=== PATIENT | female | born 1970 | race Caucasian/White ===

== ENCOUNTER 2020-05-05 09:48 | Outpatient (REF) | payer MEDICAID, SELFPAY ==
[2020-05-05 22:01] LABS: HCT 39.4 % (36.0-46.0); HGB 13.1 g/dL (12.0-15.5); Mean Corp. HGB Concentration 33.2 g/dL (32.0-36.0); Mean Corpuscular Hemoglobin 30.1 pg (27.0-33.0); Mean Corpuscular Volume 90.6 fL (80-95); Mean Platelet Volume 10.2 fL (8.0-11.0); Platelet Count 237 x1000/uL (130-400); RBC 4.35 m/cumm (4.00-5.20); RBC Distribution Width 13.5 % (11.7-14.6); White Blood Cell Count 7.52 k/cumm (4.4-10.8)
[2020-05-05 22:34] LABS: ALT 17 U/L (14-59); AST 14 U/L (15-37); Albumin 3.6 g/dL (3.4-5.0); Alkaline Phosphatase 38 U/L (46-116); Anion Gap 10.2 mmol/L (3-11); BUN 12 mg/dL (7-18); Bilirubin, Total 1.2 mg/dL (0.2-1.0); CO2 24.8 mmol/L (21.0-32.0); CREATININE 0.86 mg/dL (0.55-1.02); Calcium 8.9 mg/dL (8.5-10.1); Calculated LDL 109 mg/dL (<100); Chloride 104 mmol/L (98-107); Cholesterol 189 mg/dL (<200); Glucose 93 mg/dL (74-106); HDL Cholesterol 63 mg/dL (40-60); Potassium 4.2 mmol/L (3.5-5.1); Sodium 139 mmol/L (136-145); Total Protein 6.6 g/dL (6.4-8.2); Triglyceride 88 mg/dL (<150)
== END 2020-05-05 10:08 ==
LOC: NCHCN 09:48
PROVIDERS: PCP Family Medicine; Visit Provider Family Medicine
DX: F32.9 Major depressive disorder, single episode, unspecified (principal); M54.5 Low back pain; Z78.0 Asymptomatic menopausal state
CPT/HCPCS: 80053; 80061; 85027

== ENCOUNTER 2020-05-28 11:02 | Outpatient (REF) | payer MEDICAID, SELFPAY ==
--- NOTE | 2020-05-28 10:30 | PAPFT_PTH ---
PATIENT: Aime Abraham LOC: [facility] U#:[id number] AGE/SX: 50/F ROOM: RE05/28/[address]: SD Pope : 1970 BED: DIS: 05/28/2020 SPEC #: [id number] RECD: 05/28/20 12:44 STATUS: SUMEET REMayela #: [id number] SADIE: 05/28/20 10:[address]: Madison Saleh DEPT: [facility] Cytology RECD BY: Keli Austin ENTERED: 05/28/20 12:44 SP TYPE: PAPFT OTHR DR: Yany Gee Tissues: 1 - CX/ENDOCX FOR PAP SMEARS Procedures: PAP THIN PREP/UVM Screening HPV DNA PROBE Comments: [id number]
== END 2020-05-28 11:22 ==
LOC: LBN 11:02
PROVIDERS: PCP Family Medicine; Visit Provider Nurse Practitioner Family
DX: Z11.51 Encounter for screening for human papillomavirus (HPV) (principal)
CPT/HCPCS: 88142; 87624

== ENCOUNTER 2020-06-01 01:03 | Outpatient (CLI) | payer MEDICAID, SELFPAY ==
--- NOTE | 2020-06-01 08:00 | DI.MAMMO_ITS ---
EXAM: MG MAMMO SCREENING CLINICAL HISTORY: screening,Z12.39 TECHNIQUE: Mammograms were interpreted according to the usual protocol including computer analysis w [employer] CAD system, tomosynthesis and C-view imaging. COMPARISON: FINDINGS: Breasts are heterogeneously dense. No focal mass or clumped microcalcification is seen. No prior st udies available for comparison. IMPRESSION: No specific evidence of malignancy at this time. Routine screening examinations are suggested at yea rly intervals due to the family history of breast carcinoma. BI-RADS Cat 1 - Negative: Breast Density - Category C - Heterogeneously dense:
== END 2020-06-01 01:23 ==
PROVIDERS: PCP Family Medicine; Visit Provider Nurse Practitioner Family
DX: Z12.31 Encounter for screening mammogram for malignant neoplasm of breast (principal); Z80.3 Family history of malignant neoplasm of breast; R92.2 Inconclusive mammogram
CPT/HCPCS: 77063; 77067

== ENCOUNTER 2020-12-20 14:15 | Outpatient (REF) | payer MEDICAID, SELFPAY ==
[2020-12-21 19:39] LABS: COVID-19 RT-PCR UVMMC Result Negative (Negative)
== END 2020-12-20 14:16 | disposition home or self-care (01) ==
LOC: NCHCN 14:15
PROVIDERS: PCP Family Medicine; Visit Provider Family Medicine
DX: Z20.822 Contact with and (suspected) exposure to COVID-19 (principal)
CPT/HCPCS: U0003

== ENCOUNTER 2021-07-21 01:22 | Outpatient (CLI) | payer MEDICAID, SELFPAY ==
--- NOTE | 2021-07-21 15:00 | DI.MAMMO_ITS ---
Exam(s) MAMMO SCREENING EXAM: MAMMO SCREENING CLINICAL HISTORY: screening TECHNIQUE: Bilateral full field digital CC and MLO mammographic images were obtained with 3D tomosyn thesis and utilizing computer aided detection (CAD). COMPARISON: Available for comparison. FINDINGS: Masses/Architectural Distortion: None seen. Microcalcifications: No suspicious pleomorphic-type are seen. Skin Thickening/Nipple Retraction: None. IMPRESSION: 1. No significant interval change with no specific features of malignancy noted. 2. Unless there is more urgent need, screening mammography is recommended, as per [employer] guidelines. BI-RADS Category 1 - Negative Breast Density - Category B - Scattered areas of fibroglandular density Breast density category C or D implies that the patient has dense breast tissue. Dense breast tissue is very common and is not abnormal but dense breast tissue can make it harder to find cancer on a ma mmogram. Also, dense breast tissue may increase their breast cancer risk. This information about the result of the mammogram report was provided to the patient to raise their awareness. Use this report when you speak with the patient about their risks for breast cancer, which includes their family hist ory. At that time, you may recommend for more screening tests (Ultrasound or MRI) as they might be us eful based on their risk. A negative radiographic report should not delay biopsy if a dominant or clinically suspicious mass is present. Up to ten percent of cancers are not identified on mammography. A negative report may reinforce clinical impression. Adenosis and dense breasts may obscure an underlying neoplasm. False positive reports average 6 to 10%. Patient will receive a letter notifying them of these results.
== END 2021-07-21 01:42 ==
PROVIDERS: PCP Family Medicine; Visit Provider Nurse Practitioner Family
DX: Z12.31 Encounter for screening mammogram for malignant neoplasm of breast (principal)
CPT/HCPCS: 77063; 77067

== ENCOUNTER 2022-02-01 02:54 | Outpatient (CLI) | payer MEDICAID, SELFPAY ==
[2022-02-01 10:10] LABS: Source Nasal/Nares
[2022-02-01 12:56] LABS: COVID-19 PCR Negative (Negative)
== END 2022-02-01 02:55 | disposition home or self-care (01) ==
LOC: LBO 02:54
PROVIDERS: PCP Family Medicine; Visit Provider Surgery
DX: Z20.822 Contact with and (suspected) exposure to COVID-19 (principal)
CPT/HCPCS: 87635

== ENCOUNTER 2022-02-03 08:51 | Day surgery (SDC) | payer MEDICAID, SELFPAY ==
--- NOTE | 2022-02-02 15:09 | W.COLOREPORT ---
Colonoscopy Report Date of procedure: 02/03/22 Pre-op diagnosis general: crc screening Post-op diagnosis procedure note: other (Small polyp and diverticula) Surgeon: Luzma Willis Anesthesia Type: General:No Airway Estimated blood loss (mL): 1 Pathology: other Complications: None Disposition: same day Prep: Miralax/Dulcolax Retraction Time: 10 Procedure Description: After informed consent was obtained the patient was taken to the procedure room and placed in a left decubitous position. Monitors were applied and a time out was done. The patients name, date of , procedure, allergies to medications and metal in their body was reviewed. The patient was then sedated. Once sedated and comfortable a rectal exam was done. External exam was normal. Internal exam revealed a normal sphincter tone and no palpable masses. The scope was then introduced and retrofelexed. internal hemorrhoids were identified. The scope was then advanced to the cecum withoutdifficulty. The TI and appendiceal orifice were identified. The prep was BBPS-3 in all segments for a total of 9. The scope clinic ts then slowly retracted over 10 minutes back into the rectum. She had a small polyp at 30 cm. It did appear to be an inflammatory polyp. It was a flat 5 mm polyp that was removed with 2 bites of cold forcep. All specimen is retrieved and no bleeding is noted. She does have moderate diverticula scattered throughout the sigmoid colon. There is no signs of any active bleeding or infection. The scope was removed and the patient was woken up and taken back to Same day surgery in stable condition. The patient tolerated the procedure well and there were no immediate complications. Follow up: The patient should follow up in 7-10 years, path pd, unless they develop changes in bowel habits or other new gastrointestinal complaints.
--- NOTE | 2022-02-02 15:10 | PDOC.DSDIS_ITS ---
Discharge Plan Disposition Patient Disposition: HOME Condition: Good Discharge Details Reason For Visit: colon scope Attending Provider: Luzma Willis Primary Care Provider: Yany Gee Home Meds and New Rx's Prescriptions: Continued omega-3 fatty acids [Fish Oil Concentrate] 1,000 mg capsule 1,000 mg PO DAILY 0RF sertraline 50 mg tablet 50 mg PO HS 0RF cholecalciferol (vitamin D3) 125 mcg (5,000 unit) capsule 125 mcg PO DAILY 0RF Lion's Vini 1 cap PO DAILY 0RF Label Comments: Takes for prevention of dementia Curcumin 95 % powder See Rx Instructions miscellaneous .COMPLEX 0RF Rx Instructions: 1 cap PO daily ascorbic acid (vitamin C) 500 mg capsule 500 mg PO DAILY 0RF baclofen 10 mg tablet 10 mg PO DAILY 0RF propranolol 10 mg tablet 10 mg PO DAILY PRN0RF Probiotic (B. coagulans) 10 billion cell capsule,delayed release(DR/EC) 10 cell PO DAILY 0RF progesterone micronized 100 mg capsule 100 mg PO QAM Qty: 90 3RF Discontinued bisacodyl [Dulcolax (bisacodyl)] 5 mg tablet,delayed release (DR/EC) 5 mg PO ONCE Qty: 4 0RF Rx Instructions: Take according to provider's instructions for colonoscopy prep. polyethylene glycol 3350 17 gram/dose powder 17 g PO ONCE Qty: 238 0RF Rx Instructions: To be taken as directed by prescriber's office for colonoscopy prep. Discharge Instructions Additional Instructions: DSU Colonoscopy Post- Op Instructions Instructions for Everyone who is given Anesthesia: For your safety, please do the following for the next twenty-four (24) hours: *Do Not operate a motor vehicle (car, truck, motorcycle, etc.) *Do Not drink alcoholic beverages or use any recreational drugs for the first 24 hours or while taking pain medications. The medications in your body may have a reaction that can be dangerous. *Do Not make any important decisions or sign any important papers. Findings: -One small polyp. -Moderate diverticular disease. Make sure you are moving your bowels on a regular basis and avoid straining to go to the bathroom. Follow up: -My office will send you a letter in 2 to 3 weeks time, detailing as to what type of polyp it was and when we want you to repeat your colonoscopy is being. 1. No lifting over 20 pounds or strenuous activity for the first 24 hours after your procedure. After 24 hours there are no restrictions on your activity but you may feel fatigued for a few days. 2. After you arrive home you may have a light meal and return to your normal diet as you can tolerate it without feeling sick to your stomach. 3. You may have a bloated, gaseous feeling in your belly (abdomen) after a colonoscopy. Passing gas and belching will help. Walking or lying down on your left side with your knees flexed may relieve the discomfort. Call the office at [phone] (Office) or [phone] (Hospital) right away if you notice any of the following: a.Vomiting of blood or ?coffee ground stools?. b.Rectal bleeding 1Tbsp, blood clots or continuous bleeding. c.Severe belly (abdominal) pain. d.A hard distended belly (abdomen) and an inability to pass gas. 4. Please don?t expect to have a normal BM (bowel movement) for 2-3 days after your procedure. 5. If there are questions regarding the findings of your procedure, please contact your doctor 6. If you are unable to contact your doctor with a problem, contact the hospital at [phone]. 7. Continue all your regular medications unless directed otherwise. I understand the above instructions and have no questions. Signature of Patient or Adult Escort Name of Responsible Adult Escort Signature of Nurse Date/Time Activity:: seeabove Diet:: see above Discharge Orders Discharge Orders: Discharge Order (Routine); Ordered 02/02/22 Ordered By: Luzma Willis
[2022-02-03 09:18] VITALS: BP 104/79; PULSE 70; RESP 16; TEMP 36.7; O2SAT 94
--- NOTE | 2022-02-03 09:31 | W.ANESPRE ---
General Info Date of Service Date Performed: 02/03/22 Height: 5 ft 8 in Weight: 74.6 kg Body Mass Index (BMI): 25.0 Surgical Procedure: Operation Date: 02/03/22 09:50 Proposed Procedure Side Surgeon kody Willis, DO Meds Allergies and Home Medications Allergies Allergy/AdvReac Type Severity Reaction Status Date / Time No Known Allergies Allergy Verified 02/03/22 09:04 Home Medication Medication Instructions Recorded Renetta Martini 1 cap PO DAILY 05/28/20 cholecalciferol (vitamin D3) 125 125 mcg PO DAILY 05/28/20 mcg (5,000 unit) capsule omega-3 fatty acids 1,000 mg 1,000 mg PO DAILY 05/28/20 capsule (Fish Oil Concentrate) sertraline 50 mg tablet 50 mg PO HS 05/28/20 turmeric (bulk) 95 % powder See Rx Instructions MISCELLANEOUS 05/28/20 (Curcumin) .COMPLEX gm Bacillus coagulans 10 billion cell 10 cell PO DAILY 07/08/21 capsule,delayed release (Probiotic (B. coagulans)) baclofen 10 mg tablet 10 mg PO DAILY 07/08/21 propranolol 10 mg tablet 10 mg PO DAILY PRN tab 07/08/21 progesterone micronized 100 mg 100 mg PO QAM #90 cap 09/02/21 capsule ascorbic acid (vitamin C) 500 mg 500 mg PO DAILY 01/20/22 capsule Current Visit Medications: Current Medications Generic Name Dose Route Start Last Admin Trade Name Freq PRN Reason Stop Dose Admin Hyoscyamine Sulfate 0.125 mg 02/02/22 14:53 Hyoscyamine 0.125 Mg Sl/Oral/Chew SL 02/03/22 16:00 DIRECTED PRN Ringer's Solution 1,000 mls @ 80 mls/hr 02/03/22 06:00 IV 03/04/22 23:59 INFUSION ADIA IV Miscellaneous Supplies 1 each 02/03/22 06:00 Iv Access IV 03/04/22 23:59 DIRECTED ADIA Ondansetron HCl 4 mg 02/02/22 14:53 Ondansetron 4 Mg/2 Ml Vial IVP 02/03/22 16:00 Q4H PRN PRN Nausea / Vomiting Sodium Chloride 0 ml 02/03/22 06:00 Normal Saline Flush 10 Ml Syr IV 03/04/22 23:59 PRN PRN Sodium Chloride 0 ml 02/03/22 06:00 Normal Saline 10 Ml Vial IJ 03/04/22 23:59 DIRECTED PRN Sterile Water 0 ml 02/03/22 06:00 Water,Injection,Sterile 10 Ml Vial IJ 03/04/22 23:59 DIRECTED PRN PFSH Active Problems Active Problems: Problem Status Onset Code Screening for colon cancer Z12.11 Depression F32.9 Perimenopausal N95.1 Hormone replacement therapy (HRT) Z79.890 Medical History Medical History Low back pain Menopause Surgical History Surgical History S/P Tobacco Smoking/Tobacco Use Status: Never Alcohol Alcohol Intake: current Alcohol intake frequency: holidays/special occasions only Substance Use Substance use: Never Substance use type: does not use Vital Signs and Lab Results Vital Signs Most Recent Vital Signs in EMR: Most Recent Vital Signs Temp Pulse Resp BP Pulse Ox 36.7 C 70 16 104/79 94 02/03/22 09:18 02/03/22 09:18 02/03/22 09:18 02/03/22 09:18 02/03/22 09:18 Lab Results Blood Type / Crossmatch: No Data to Display Complete Blood Count: No Data to Display Complete Metabolic Panel: No Data to Display Liver Function Panel: No Data to Display Coagulation Panel: No Data to Display Cardiac Panel: No Data to Display Arterial Blood Gas: No Data to Display Venous Blood Gas: No Data to Display Pancreas Panel: No Data to Display Thyroid Panel: No Data to Display Infectious Disease: Coronavirus (COVID-19)(PCR) Negative (Negative) 02/01/22 08:55 02/01/22 Coronavirus 2019 Source Nasal/Nares 02/01/22 08:55 02/01/22 Blood Cultures: No Data to Display Toxicology Panel: No Data to Display Panel: No Data to Display Anesthesia Assessment and Plan Anesthesia History Personal History: No History of Anesthesia Complications Family History: No Family History of Anesthesia Complications Exercise Tolerance Exercise Tolerance: Metabolic Equivalents>4 Pertinent Negatives Pertinent Negatives: No Symptoms of GERD, No Major Cardiovascular Symptoms or Complaints, No Major Pulmonary Symptoms or Complaints and No History of CVA/TIA Cardiac & Pulmonary Exam Cardiac Exam: Normal S1/S2 Heart Sounds Pulmonary Exam: Clear Bilateral Breath Sounds Implantable Cardiac Device Does patient have a Pacemaker or an ICD?: No Airway Exam Known Difficult Airway: No Mallampati Class: 1 Mouth Opening: Normal (> 3cm) Thyromental Distance: Greater than 3 cm Neck Range of Motion: Full ROM Neck Circumference: Normal Teeth Condition: Normal Dentition ASA Classification ASA Score: ASA 2 Emergency Case?: No NPO Status NPO Status: NPO Clears >2 hours, Solids >8 hours Status Status: Not Relevant due to Medical History Anesthesia Plan Resuscitation Status: Full Code Anesthesia Technique: General Anesthesia Airway Planned: Natural Airway Monitors Used: Standard Monitors
[2022-02-03 09:33] VITALS: BMI 25.0
[2022-02-03] MEDS: Lactated Ringers 1,000 ML 80 ML IV (09:34)
--- NOTE | 2022-02-03 09:49 | BOWEL_PTH ---
PATIENT: Aime Abraham LOC: [facility] U#:[id number] AGE/SX: 51/F ROOM: RE02/03/[address]: Luzma Willis : 1970 BED: DIS: 02/03/2022 SPEC #: [id number] RECD: 02/03/22 12:30 STATUS: SUMEET REQ #: [id number] SADIE: 02/03/22 09:[address]: Luzma Willis DEPT: Surgical Specimen RECD BY: Keli Austin ENTERED: 02/03/22 12:30 SP TYPE: Bowel OTHR DR: Yany Gee Tissues: 1 - BIOPSY BOWEL Procedures: GROSS AND MICRO LEVEL 4 Comments: [id number]
--- NOTE | 2022-02-03 10:18 | W.ANESPOSTOP ---
Postoperative Evaluation Date, Time and Location Date Performed: 02/03/22 Time Performed: 10:18 Patient Location: Day Surgery Unit Vital Signs Most Recent Imported Vital Signs: Most Recent Vital Signs Temp Pulse Resp BP Pulse Ox 36.7 C 70 16 104/79 94 02/03/22 09:18 02/03/22 09:18 02/03/22 09:18 02/03/22 09:18 02/03/22 09:18 Most Recent Manually Entered Vital Signs: Adult Blood Pressure: 115/71 Heart Rate: 65 Respirations: 10 Oxygen Saturation (%): 96 Temperature (C): 36.4 C Pain Score (0-10 Scale): 0 Pain Score Most Recent Pain Score: Most Recent Pain Score Pain Level 0 02/03/22 09:18 Assessment Mental Status: Awake (Alert & Oriented to Patient Baseline) Airway and Respiratory Function: Patent airway with normal (patient baseline) respiratory exam Cardiovascular Function: Hemodynamically Stable Hydration Status: Adequately Hydrated Nausea & Vomiting: No Nausea or Vomiting Pain: Pt. Denies Any Pain Peripheral Nerve Block: Patient did not receive a nerve block
[2022-02-03 10:19] VITALS: BP 115/71; PULSE 65; PULSE 69; RESP 10; RESP 16; TEMP 36.4; TEMPC 36.4; O2SAT 96
[2022-02-03 10:54] VITALS: BP 102/64; PULSE 73; RESP 16; TEMP 36.8; O2SAT 95
== END 2022-02-03 11:25 | disposition home or self-care (01) ==
LOC: SUR 08:51
PROVIDERS: PCP Family Medicine; Visit Provider Surgery
PROC: 0DJD8ZZ Inspection of Lower Intestinal Tract, Via Natural or Artificial Opening Endoscopic (ICD-10-PCS; CPT 45378; principal; 2022-02-03 09:45)
DX: Z12.11 Encounter for screening for malignant neoplasm of colon (principal); K63.5 Polyp of colon; K57.30 Diverticulosis of large intestine without perforation or abscess without bleeding; K64.8 Other hemorrhoids
CPT/HCPCS: 45380; 88305

== ENCOUNTER → 2022-08-07 01:30 | Outpatient (CLI) | payer MEDICAID, SELFPAY ==
--- NOTE | 2022-08-07 16:00 | DI.MAMMO_ITS ---
Exam(s) MAMMO SCREENING EXAM: MAMMO SCREENING CLINICAL HISTORY: screening TECHNIQUE: Mammograms were interpreted according to the usual protocol including computer analysis w [employer] CAD system, tomosynthesis and C-view imaging. COMPARISON: 2015 through 2020 FINDINGS: The breasts are composed of scattered fibroglandular densities, Breast Density category B. No suspicious masses or suspicious microcalcifications are seen. Benign-appearing calcifications are again noted in right breast No skin thickening or abnormal axillary lymph nodes are seen. There has been no significant change from prior exams. IMPRESSION: BI-RADS Cat 2 - Benign Findings Yearly screening mammography is recommended. Breast Density - Category B, scattered fibroglandular densities. A negative radiographic report should not delay biopsy if a dominant or clinically suspicious mass is present. Up to ten percent of cancers are not identified on mammography. A negative report may reinforce clinical impression. Adenosis and dense breasts may obscure an underlying neoplasm. False positive reports average 6 to 10%. Patient will receive a letter notifying them of these results.
== END ==
PROVIDERS: PCP Family Medicine; Visit Provider Nurse Practitioner Women's Health
DX: Z12.31 Encounter for screening mammogram for malignant neoplasm of breast (principal)
CPT/HCPCS: 77063; 77067

== ENCOUNTER 2023-07-30 15:16 | Outpatient (REF) | payer MEDICAID, SELFPAY ==
--- NOTE | 2023-07-30 14:50 | PAPFT_PTH ---
PATIENT: Aime Abraham LOC: [facility] U#:[id number] AGE/SX: 53/F ROOM: RE07/30/[address]: Bobbi Robert NP : 1970 BED: DIS: 07/30/2023 SPEC #: [id number] RECD: 07/30/23 17:53 STATUS: PRERNAJean-Claude REQ #: [id number] SADIE: 07/30/23 14:[address]: Yesica MAYES,Bobbi DEPT: [facility] Cytology RECD BY: Keli Austin ENTERED: 07/30/23 17:54 SP TYPE: PAPFT OTHR DR: Yany Gee Tissues: 1 - CX/ENDOCX FOR PAP SMEARS Procedures: PAP THIN PREP/UVM Screening HPV DNA PROBE Comments: [id number]
== END 2023-07-30 15:17 | disposition home or self-care (01) ==
LOC: LBN 15:16
PROVIDERS: PCP Family Medicine; Visit Provider Nurse Practitioner Women's Health
DX: Z12.4 Encounter for screening for malignant neoplasm of cervix (principal); Z11.51 Encounter for screening for human papillomavirus (HPV)
CPT/HCPCS: 88142; 87624

== ENCOUNTER → 2023-08-28 00:47 | Outpatient (CLI) | payer MEDICAID, SELFPAY ==
--- NOTE | 2023-08-28 15:45 | DI.MAMMO_ITS ---
Exam(s) MAMMO SCREENING EXAM: MAMMO SCREENING CLINICAL HISTORY: screening TECHNIQUE: Mammograms were interpreted according to the usual protocol including computer analysis w [employer] CAD system, tomosynthesis and C-view imaging. COMPARISON: 2015 through 2021 FINDINGS: The breasts are composed of scattered fibroglandular densities, Breast Density category B. No suspicious masses or suspicious microcalcifications are seen. No skin thickening or abnormal axillary lymph nodes are seen. There has been no significant change from prior exams. IMPRESSION: BI-RADS Category 1, Negative mammogram Yearly screening mammography is recommended. Breast Density - Category B, scattered fibroglandular densities. A negative radiographic report should not delay biopsy if a dominant or clinically suspicious mass is present. Up to ten percent of cancers are not identified on mammography. A negative report may reinforce clinical impression. Adenosis and dense breasts may obscure an underlying neoplasm. False positive reports average 6 to 10%. Patient will receive a letter notifying them of these results.
== END ==
PROVIDERS: PCP Family Medicine; Visit Provider Nurse Practitioner Women's Health
DX: Z12.31 Encounter for screening mammogram for malignant neoplasm of breast (principal)
CPT/HCPCS: 77063; 77067

== ENCOUNTER 2024-03-24 10:23 | Outpatient (REF) | payer MEDICAID, SELFPAY ==
[2024-03-24 14:51] LABS: ALT 28 U/L (14-59); AST 19 U/L (15-37); Albumin 3.8 g/dL (3.4-5.0); Alkaline Phosphatase 60 U/L (46-116); Anion Gap 8.1 mmol/L (3-11); BUN 14 mg/dL (7-18); Bilirubin, Total 0.9 mg/dL (0.2-1.0); CO2 26.9 mmol/L (21.0-32.0); CREATININE 0.8 mg/dL (0.55-1.02); Calcium 9.4 mg/dL (8.5-10.1); Calculated LDL 143 mg/dL (<100); Chloride 106 mmol/L (98-107); Cholesterol 232 mg/dL (<200); Estimated GFR 86.96 (mL/min/1.73m2); Glucose 98 mg/dL (74-106); HDL Cholesterol 74 mg/dL (40-60); Potassium 4.7 mmol/L (3.5-5.1); Sodium 141 mmol/L (136-145); Triglyceride 79 mg/dL (<150)
[2024-03-24 15:16] LABS: Vitamin D 25 Total 45.4 ng/mL (30-100)
== END 2024-03-24 10:24 | disposition home or self-care (01) ==
LOC: NCHCN 10:23
PROVIDERS: PCP Family Medicine; Visit Provider Family Medicine
DX: Z00.00 Encounter for general adult medical examination without abnormal findings (principal)
CPT/HCPCS: 80053; 80061; 82306

== ENCOUNTER 2024-10-01 13:38 | Outpatient (REF) | payer MEDICAID, SELFPAY ==
[2024-10-01 15:37] LABS: Calculated LDL 100 mg/dL (<100); Cholesterol 182 mg/dL (<200); HDL Cholesterol 68 mg/dL (40-60); Triglyceride 74 mg/dL (<150)
== END 2024-10-01 13:39 | disposition home or self-care (01) ==
LOC: NCHCN 13:38
PROVIDERS: PCP Family Medicine; Visit Provider Family Medicine
DX: E78.5 Hyperlipidemia, unspecified (principal)
CPT/HCPCS: 80061

== ENCOUNTER 2024-12-03 02:31 | Outpatient (CLI) | payer MEDICAID, SELFPAY ==
--- NOTE | 2024-12-03 07:30 | DI.MAMMO_ITS ---
Exam(s) MAMMO SCREENING EXAM: MAMMO SCREENING CLINICAL HISTORY: screening,Z12.39 TECHNIQUE: Bilateral full field digital CC and MLO mammographic images were obtained with 3D tomosyn thesis and utilizing computer aided detection (CAD). COMPARISON: Available for comparison. FINDINGS: Masses/Architectural Distortion: None seen. Microcalcifications: No suspicious pleomorphic-type are seen. Skin Thickening/Nipple Retraction: None. IMPRESSION: 1. No significant interval change with no specific features of malignancy noted. 2. Unless there is more urgent need, screening mammography is recommended, as per [employer] guidelines. BI-RADS Category 1 - Negative Breast Density - Category B - Scattered areas of fibroglandular density Breast density category C or D implies that the patient has dense breast tissue. Dense breast tissue is very common and is not abnormal but dense breast tissue can make it harder to find cancer on a ma mmogram. Also, dense breast tissue may increase their breast cancer risk. This information about the result of the mammogram report was provided to the patient to raise their awareness. Use this report when you speak with the patient about their risks for breast cancer, which includes their family hist ory. At that time, you may recommend for more screening tests (Ultrasound or MRI) as they might be us eful based on their risk. A negative radiographic report should not delay biopsy if a dominant or clinically suspicious mass is present. Up to ten percent of cancers are not identified on mammography. A negative report may reinforce clinical impression. Adenosis and dense breasts may obscure an underlying neoplasm. False positive reports average 6 to 10%. Patient will receive a letter notifying them of these results.
== END 2024-12-03 02:51 ==
LOC: DI 02:31
PROVIDERS: PCP Family Medicine; Visit Provider Obstetrics & Gynecology
DX: Z12.31 Encounter for screening mammogram for malignant neoplasm of breast (principal); R92.323 Mammographic fibroglandular density, bilateral breasts
CPT/HCPCS: 77063; 77067

== ENCOUNTER 2025-09-02 16:20 | Emergency (ER) | payer MEDICAID, SELFPAY ==
[2025-09-02 16:30] VITALS: BP 119/74; PULSE 77; RESP 20; TEMP 36.7
--- NOTE | 2025-09-02 16:30 | DI.RAD_ITS ---
Exam(s) XR WRIST RT COMPLETE EXAM: XR WRIST RT COMPLETE CLINICAL HISTORY: bit by dog, ?fracture. TECHNIQUE: 2D digital imaging was performed of the right wrist. Three views were obtained. PA, lateral and oblique views were obtained. COMPARISON: No exams were available for comparison FINDINGS: BONES: No acute fracture is present. No bony destructive lesion is seen. JOINTS: The carpal bones are normally aligned. SOFT TISSUE: There is a laceration at the anterior and lateral aspect of the wrist. No radiopaque foreign body is identified. IMPRESSION: 1. There is no acute fracture or dislocation. 2. Soft tissue laceration at the anterolateral aspect of the wrist. No radiopaque foreign body. DATA REPOSITORY: RADIATION DOSE DELIVERED:
[2025-09-02 16:32] VITALS: BP 119/74; PULSE 77; RESP 20; TEMP 36.7
--- NOTE | 2025-09-02 16:45 | W.ED.GENAD ---
Discharge Plan Disposition Patient Disposition: Home Condition: Stable Discharge Details Clinical Impression: Dog bite of right arm Primary Care Provider: Yany Gee ED Provider: Og Robert Home Meds and New Rx's Prescriptions: New amoxicillin-pot clavulanate 875-125 mg tablet 1 tab PO BID Qty: 14 0RF Continued progesterone micronized [Prometrium] 100 mg capsule 200 mg PO QAM 90 Days Qty: 180 3RF sertraline 50 mg tablet See Rx Instructions .ROUTE .COMPLEX Qty: 90 0RF Dose Instruction: TAKE 1 TABLET BY MOUTH AT BEDTIME Rx Instructions: TAKE 1 TABLET BY MOUTH AT BEDTIME Discharge Instructions Additional Instructions: Your x-ray did not show any concerning findings at this time. Try to keep your arm elevated when sitting or lying down to help prevent significant swelling. If you have signs of infection such as spreading redness down the arm or high fevers return to the emergency department for reevaluation. HPI General Mode of arrival: ambulatory. Date/Time Provider Initiated Documentation: 09/02/25 16:28. Limitations to Documentation: no limitations. Information obtained by: patient. History of Present Illness 55 year old F presents to the emergency department with the chief complaint of dog bite right arm , described as mild, Quality is described as aching, and is localized to the right and upper extremity. Patient reports no radiation. Patient started experiencing this hour(s) (1) and it has been constant. No relieving factors improve symptom(s), No exacerbating factors reported . Patient notes no other symptoms.. Patient did receive the following treatments prior to arrival, none Related Data Home Medications Medication Instructions Recorded Confirmed progesterone micronized 100 mg 200 mg (2 x 100 mg) PO QAM 3 09/19/24 09/02/25 capsule (Prometrium) months #180 caps sertraline 50 mg tablet See Rx Instructions .Route 04/13/25 09/02/25 .COMPLEX #90 tabs amoxicillin 875 mg-potassium 1 tab PO BID #14 tabs 09/02/25 clavulanate 125 mg tablet Previous Rx's Medication Instructions Recorded progesterone micronized 100 mg 200 mg (2 x 100 mg) PO QAM 3 09/19/24 capsule (Prometrium) months #180 caps sertraline 50 mg tablet See Rx Instructions .Route 04/13/25 .COMPLEX #90 tabs amoxicillin 875 mg-potassium 1 tab PO BID #14 tabs 09/02/25 clavulanate 125 mg tablet Allergies Allergy/AdvReac Type Severity Reaction Status Date / Time No Known Allergies Allergy Verified 09/02/25 16:34 General Stated Complaint: AnimalBite ROBE: 3 Review of Systems All systems reviewed & are unremarkable except as noted in HPI and below Constitutional Constitutional: Denies chills, Denies fever(s) and Denies weakness Cardiovascular Cardiovascular: Denies chest pain and Denies dyspnea Respiratory Respiratory: Denies cough and Denies dyspnea Gastrointestinal Gastrointestinal: Denies abdominal pain and Denies vomiting Neurologic Neurologic: Denies weakness Exam Const General: no acute distress Orientation: alert HENMT Head: normal to inspection Ears: external ears normal General nose exam: external nose normal Mouth: moist mucous membranes Resp Effort & Inspection: normal respiratory effort and able to speak in complete sentences Cardio Rate: regular rate Skin General skin exam: no rashes or lesions noted Neuro General: patient alert and patient oriented x3 Extrem General: full ROM and capillary refill normal Psych Mental Status: mental status grossly normal Course Vital Signs Vital signs: Vital Signs Temperature 36.7 C 09/02/25 16:30 Pulse 77 09/02/25 16:30 Respiratory Rate 20 09/02/25 16:30 Blood Pressure 119/74 09/02/25 16:30 Temperature 36.7 C 09/02/25 16:32 Temperature Source Tympanic 09/02/25 16:32 Pulse 77 09/02/25 16:32 Respiratory Rate 20 09/02/25 16:32 Blood Pressure 119/74 09/02/25 16:32 Blood Pressure Position Sitting 09/02/25 16:32 Pain Level 2 09/02/25 16:32 Medical Decision Making 55-year-old female comes in after one of her dogs that is up-to-date on her vaccines per the patient they are on the right hand/wrist area. She did not fall or sustain other injuries. She has 2 small puncture wounds to the posterior mid wrist anterior and wrist. She has full range of motion of the wrist and intact sensation and pulses. I do not see records of her having a tetanus vaccine within the last 5 years and she does not believe she has had 1 so we will update her tetanus and have nursing irrigate her wounds. Will obtain x-rays to exclude fracture. Will also start her on Augmentin. X-ray negative and patient is stable. She had her wounds extensively cleaned. She is stable for discharge and return precautions given. Differential Diagnosis Differential Diagnosis: dog bite, abrasion PFSH All Active Problems (Updated 09/02/25 @ 18:05 by Og Robert MD) Dog bite of right arm (Acute) Pelvic floor dysfunction (Acute) Menopause (Acute) Screening for colon cancer (Acute) Depression (Chronic) Hormone replacement therapy (HRT) (Acute) Medical History Hyperplastic colon polyp (~02/03/22) Low back pain Surgical History History of colonoscopy (~02/03/22) S/P Family History Father Dementia Mother Dementia Social History Smoking/Tobacco Use Status: Never Quit status: quit date established Second Hand Exposure: No Smoking risk assessment performed?: Yes Alcohol Intake: current Alcohol Intake frequency: holidays/special occasions only Drug use: Never Substance use type: does not use Sexually active: Yes Current gender identity: female What type of physical activity do you participate in: regular exercise Frequency: 5-6 times per week Seatbelt use: always Helmet use: Yes Drive intox or ride w/intox truss driver helper: No Do you feel safe at home: Yes Do you feel safe in your relationship?: Yes Female Reproductive History Menstrual Menopause type: natural Date of menopause: 02/03/21
[2025-09-02] MEDS: Tetanus & Diphtheria Tox,ADULT 0.5 ML VIAL IM (17:11)
[2025-09-02] MEDS: Amox. 875/Clav. 125, 2 TABS/BTL 1 TAB PO (17:15)
[2025-09-02 18:26] VITALS: TEMP 37
== END 2025-09-02 18:26 | disposition home or self-care (01) ==
PROVIDERS: Emergency Provider Emergency Medicine; PCP Family Medicine
DX: S41.151A Open bite of right upper arm, initial encounter (principal); W54.0XXA Bitten by dog, initial encounter
CPT/HCPCS: 99283 ×2; 90471; 90714; 73110

== ENCOUNTER → 2025-09-15 07:38 | Outpatient (CLI) | payer MEDICAID, SELFPAY ==
--- NOTE | 2025-09-15 09:36 | DI.RAD_ITS ---
Exam(s) XR SCOLIOSIS T-L SPINE EXAM: XR SCOLIOSIS T-L SPINE CLINICAL HISTORY: SCOLIOSIS DEFORMITY,M41.9. TECHNIQUE: 2D digital imaging was performed. COMPARISON: No exams were available for comparison FINDINGS: Standing scoliosis series with no previous for comparison. There is a severe rotoscoliosis convex left which starts in the lower thoracic spine and extends throughout the length of the lumbar spine. The maximum Stevens angle measurement was obtained using the superior endplate of T12 and superior endplate of L5, describing an angle of approximately 43 degrees. IMPRESSION: Severe rotoscoliosis convex left lower thoracic and lumbar spine with Stevens angle measurement of approximately 43 degrees. Incidentally noted is a healed midshaft fracture of the right clavicle. DATA REPOSITORY: RADIATION DOSE DELIVERED:
== END ==
LOC: DI 07:39
PROVIDERS: PCP Family Medicine; Visit Provider Family Medicine
DX: M41.25 Other idiopathic scoliosis, thoracolumbar region (principal)
CPT/HCPCS: 72082